=== PATIENT | female | born 1980 | race Asian ===

== ENCOUNTER 2021-08-19 15:57 | Emergency (ER) | payer MEDICAID, OTHER ==
[~2021-08-19] VITALS: Ht 152.4 cm; Wt 69.4 kg
--- OUTSIDE RECORDS SUMMARY | 2021-08-19 16:03 | XMS REPORT | Clinical Summary ---
Author Author [facility] Organization [facility] Address Unknown Phone Unavailable Care Team Providers Care Pl Sql Programmer Name Role Phone PCP Unavailable Allergies No Known Active Allergies Medications End Date Status Medication Sig Dispensed Refills Start Date Active propranoloL (INDERAL) 10 Take 10 mg by 0 MG tablet mouth 2 (two) times a day. Active Problems Comments Yes No additional problems on file Social History Date Tobacco Use Types Packs/Day Years Used Never Smoker Smokeless Tobacco: Never Used Comments Alcohol Use Standard Drinks/Week Never 0 (1 standard drink = 0.6 o z pure alcohol) Alcohol Habits Answer Date Recorded How often do you have a drink containing alcohol? Never 09/29/2020 How many drinks containing alcohol do you have on No t asked a typical day when you are drinking? How often do you have six or more drinks on one Not asked occasion? Comments Yes Sex Assigned at Date Recorded Not on file Last Filed Vital Signs Reading Time Taken Comments Vital Sign 148/78 09/29/2020 2:53 PM CDT Blood Pressure 68 09/29/2020 2:53 PM CDT Pulse 36.8 C (98.3 F) 09/29/2020 12:06 PM CDT Temperature 18 09/29/2020 2:53 PM CDT Respiratory Rate 98% 09/29/2020 2:53 PM CDT Oxygen Saturation - - Inhaled Oxygen Concentration 73.1 kg (161 lb 2.5 oz) 09/29/2020 12:06 PM CDT Weight 152.4 cm (5') 09/29/2020 12:06 PM CDT Height 31.47 09/29/2020 12:06 PM CDT Body Mass Index Plan of Treatment Health Maintenance Due Date Last Done Comments Td/Tdap# 1980 COVID-19 Vaccine (1) 1993 Cervical Cancer Screening 2002 via Pap Smear Influenza Vaccine (#1) 2021 Pneumococcal Vaccine: Aged Out No longer eligib le based on patient's age to Pediatrics (0 to 5 Years) complete this topic and At-Risk Patients (6 to 64 Years) Results Not on filefrom Last 3 Months Insurance Type Payer Benefit Subscriber ID Effective Phone Address Plan / Dates Group MEDICAID PENDING MEDICAID [id number] 2020- PENDING Present MEDICAID MANAGED CARE [facility] [id number] 0- ([employer] Present [place] Her,See Boris Personal/F Self 1980 [address] [place] [address] Advance Directives For more information, please contact: [phone] Patient Incident Response Engineer Explanation Type Date Recorded Health Care Directive
--- OUTSIDE RECORDS SUMMARY | 2021-08-19 16:03 | XMS REPORT | Clinical Summary ---
Author Author [facility] Health Organization [facility] Health Address Unknown Phone Unavailable Care Team Providers Care Ore Puncher Name Role Phone Network, Pcp Out Of PCP Unavailable Source Comments [facility] (Labor and Delivery) documents do not appear [facility] Allergies Comments Active Allergy Reactions Severity Noted Date Heart Races Hydroxyzine Hcl Other (See 10/25/2019 Comments) Medications * Please verify current medications with patient. End Date Status Medication Sig Dispensed Refills Start Date Active triamcinolone acetonide APPLY CREAM 45 g 1 0.1 % (KENALOG) cream EXTERNALLY TO 9 AREA TWICE DAILY FOR UP TO 7 DAYS NEEDED FOR RASH Active levothyroxine (SYNTHROID) Take 75 mcg 90 tablet 0 75 mcg tablet by mouth once 9 a day at 6 am Active labetaloL (TRANDATE) 100 TAKE 1 TABLET 30 tablet 0 mg tablet BID 0 Active amLODIPine-benazepril Take 1 30 capsule 0 10/03 (LOTREL) 5-20 mg capsule capsule by 0 mouth once a day Active Problems Problem Noted Date Rash 04/16/2018 HTN (hypertension) 06/08/2013 Hypothyroidism 06/08/2013 Overview: Formatting of this note might be differ ent from the original. S/p right thyroid removal for goiter. Insulin resistance syndrome 06/08/2013 Resolved Problems Problem Noted Date Resolved Date History of miscarriage, currently 06/08/2013 04/16/2018 Overview: Formatting of this note might be differ ent from the original. In depth negative work up through [facility]. See scanned records Immunizations Name Administration Dates Next Due FLU VACCINE, TRIVALENT, 09/29/2013 (AGE INDICATION BASED ON BRAND), 0.5 mL MDV Family History Medical History Relation Comments Hypertension Father Diabetes Mother Hypertension Mother Relation Status Comments Father Mother Social History Date Tobacco Use Types Packs/Day Years Used Never Smoker Smokeless Tobacco: Never Used Comments Alcohol Use Standard Drinks/Week Not Asked 0 (1 standard drink = 0.6 o z pure alcohol) Sex Assigned at Date Recorded Not on file Last Filed Vital Signs Reading Time Taken Comments Vital Sign 128/82 10/25/2019 1:37 PM [facility] left arm Blood Pressure 76 10/25/2019 1:37 PM MST Pulse 37.2 C (99 F) 10/25/2019 1:37 PM MST Temperature 18 10/25/2019 1:37 PM MST Respiratory Rate 95% 10/25/2019 1:37 PM [facility] room air Oxygen Saturation - - Inhaled Oxygen Concentration 70.1 kg (154 lb 9.6 oz) 10/25/2019 1:37 PM MST Weight 152.4 cm (5') 10/25/2019 1:37 PM MST Height 30.19 10/25/2019 1:37 PM MST Body Mass Index Plan of Treatment Health Maintenance Due Date Last Done Comments HPV/Cotest 1980 COVID-19 Vaccine (1) 1993 Influenza Vaccine (#1) 2021 09/29/2013 Cervical Cancer Screening 06/09/2024 Pap Smear 06/09/2024 06/09/2019, 08/31/2016 (Done Outside Per Patient/companion caregiver), 05/31/2014 (Done Outside Per Patient/companion caregiver) HPV Vaccine Aged Out No longer eligible based on patient's age to complete this topic Pneumococcal Vaccine: Aged Out No longer eligib le based on patient's age to Pediatrics (0 to 5 Years) complete this topic and At-Risk Patients (6 to 64 Years) Results Not on filefrom Last 3 Months Insurance Type Payer Benefit Subscriber ID Effective Phone Address Plan / Dates Group Not Determined [facility] [id number] 2018-P [phone] [address] [address] [place] [address] Advance Directives Patient Waiter/Waitress First Class Explanation Type Date Recorded Living Will CPR Directives Durable Medical POA Advanced Directives Care Teams Start Date End Date Ore Puncher Relationship Specialty 10/30/20 Network, Pcp Out Of PCP - General Other or Unknown Specialty
[2021-08-19] MEDS ORDERED: NS IV 1000 ML 1,000 ML IV STA (16:42)
[2021-08-19] MEDS ORDERED: DICYCLOMINE 10 MG/ML (BENTYL) 2 ML AMP IM STA (16:42)
[2021-08-19] MEDS ORDERED: ONDANSETRON 4 MG/2 ML (SDV) Z0FRAN IVP STA (16:42)
--- NOTE | 2021-08-19 16:44 | ED GI ---
General Chief Complaint: Abdominal/GI Problems Stated Complaint: POSS FOOD POISONING/ABD PAIN Source of Information: Patient History of Present Illness Date Seen by Provider: Aug 19, 2021 Time Seen by Provider: 16:24 Initial Comments 40 yo female presenting with complaints of abdominal pain and soreness since having [place] on Friday. The food was sitting out for a while before it was eaten. Several others from the meeting had the same food and had similar illness. She had abdominal pain throughout Friday night and then diarrhea all t he Friday. She has been taking only on Nexium which is slow the diarrhea. Today she has abdominal wall soreness and it feels like she has stool moving in her belly. At times gets too small and is very uncomfortable and painful. She denies any vomiting. She has no pain or burning with urination. When she was having the diarrhea was becoming watery and she did see some blood mixed in with it. She denies any fever, chills, abdominal trauma. She does have history of section but otherwise no abdominal surgeries. Severity/Quality: Severe, Cramping, Stabbing Location: Generalized Abdomen Associated Symptoms: No Chest Pain, No Diaphoresis, No Fever/Chills, No Fatigue, No Headache; Heartburn; No Nausea/Vomiting, No Rash, No Shortness of Air, No Swelling/Mass in Abdomen, No Syncope, No Weakness Allergies and Home Medications Allergies Coded Allergies: No Known Drug Allergies (Unverified , 08/19/21) Patient Home Medication List Home Medication List Reviewed: Yes Dicyclomine HCl (Dicyclomine HCl) 20 Mg Tablet, 20 MG PO QID PRN for abdominal pain/spasm Prescribed by: KATE GAGE on 08/19/21 173 Ondansetron (Ondansetron Odt) 4 Mg Tab.rapdis, 4 MG PO Q6H PRN for NAUSEA /VOMITING Prescribed by: KATE GAGE on 08/19/21 173 Review of Systems Review of Systems Constitutional: see HPI EENTM: No Symptoms Reported Respiratory: No Symptoms Reported Cardiovascular: No Symptoms Reported Gastrointestinal: See HPI Genitourinary: No Symptoms Reported Musculoskeletal: no symptoms reported Skin: No rash Psychiatric/Neurological: Denies Headache Past Hohnfbt-Klmntj-Ieamku Hx Past Medical History Surgeries: Yes Section Physical Exam Vital Signs Vital Signs - First Documented 08/19/21 16:02 Temp 36.2 Pulse 78 Resp 14 B/P (MAP) 104/81 (89) Pulse Ox 100 O2 Delivery Room Air Capillary Refill : Height/Weight/BMI Height: '" Weight: lbs. oz. kg; BMI Method: General Appearance: WD/WN, mild distress HEENT: pharynx normal Neck: non-tender, full range of motion, supple, normal inspection Respiratory: chest non-tender, lungs clear, normal breath sounds Cardiovascular: normal peripheral pulses, regular rate, rhythm Gastrointestinal: normal bowel sounds, soft, no pulsatile mass; No distended, No guarding, No rebound; tenderness (mild diffuse tenderness to palpation) Rectal: deferred Extremities: normal range of motion, non-tender, normal capillary refill Back: no CVA tenderness, no vertebral tenderness Neurologic/Psychiatric: alert, oriented x 3 Skin: normal color, warm/dry Images 1 - mild diffuse tenderness to palpation. No guarding/rebound Progress/Results/Core Measures Results/Orders Lab Results Laboratory Tests Test 08/19/21 16:50 08/19/21 17:05 Range/Units Urine Color YELLOW Urine Clarity CLOUDY Urine pH 6.0 5-9 Urine Specific [place] >=1.030 1.016-1.022 Urine Protein 3+ H NEGATIVE Urine Glucose (UA) NEGATIVE NEGATIVE Urine Ketones NEGATIVE NEGATIVE Urine Nitrite NEGATIVE NEGATIVE Urine Bilirubin NEGATIVE NEGATIVE Urine Urobilinogen 0.2 < = 1.0 MG/DL Urine Leukocyte Esterase NEGATIVE NEGATIVE Urine RBC (Auto) 3+ H NEGATIVE Urine RBC NONE /HPF Urine WBC >100 H /HPF Urine Squamous Epithelial Cells 25-50 H /HPF Urine Crystals NONE /LPF Urine Bacteria LARGE H /HPF Urine Casts NONE /LPF Urine Mucus LARGE H /LPF Urine Yeast FEW H /HPF Urine Culture Indicated NO White Blood Count 18.3 H 4.3-11.0 10^3/uL Red Blood Count 5.14 H 3.80-5.11 10^6/uL Hemoglobin 15.6 11.5-16.0 g/dL Hematocrit 46 35-52 % Mean Corpuscular Volume 89 80-99 fL Mean Corpuscular Hemoglobin 30 25-34 pg Mean Corpuscular Hemoglobin Concent 34 32-36 g/dL Red Cell Distribution Width 12.1 10.0-14.5 % Platelet Count 319 130-400 10^3/uL Mean Platelet Volume 8.4 L 9.0-12.2 fL Immature Granulocyte % (Auto) 1 % Neutrophils (%) (Auto) 89 H 42-75 % Lymphocytes (%) (Auto) 7 L 12-44 % Monocytes (%) (Auto) 3 0-12 % Eosinophils (%) (Auto) 0 0-10 % Basophils (%) (Auto) 0 0-10 % Neutrophils # (Auto) 16.3 H 1.8-7.8 X 10^3 Lymphocytes # (Auto) 1.3 1.0-4.0 X 10^3 Monocytes # (Auto) 0.5 0.0-1.0 X 10^3 Eosinophils # (Auto) 0.1 0.0-0.3 10^3/uL Basophils # (Auto) 0.1 0.0-0.1 10^3/uL Immature Granulocyte # (Auto) 0.1 0.0-0.1 10^3/uL Neutrophils % (Manual) 90 % Lymphocytes % (Manual) 8 % Monocytes % (Manual) 2 % Sodium Level 137 135-145 MMOL/L Potassium Level 4.5 3.6-5.0 MMOL/L Chloride Level 101 98-107 MMOL/L Carbon Dioxide Level 24 21-32 MMOL/L Anion Gap 12 5-14 MMOL/L Blood Urea Nitrogen 15 7-18 MG/DL Creatinine 0.73 0.60-1.30 MG/DL Estimat Glomerular Filtration Rate 89 BUN/Creatinine Ratio 21 Glucose Level 116 H 70-105 MG/DL Calcium Level 9.5 8.5-10.1 MG/DL Corrected Calcium 8.5-10.1 MG/DL Total Bilirubin 0.4 0.1-1.0 MG/DL Aspartate Amino Transf (AST/SGOT) 16 5-34 U/L Alanine Aminotransferase (ALT/SGPT) 9 0-55 U/L Alkaline Phosphatase 78 40-136 U/L Total Protein 9.1 H 6.4-8.2 GM/DL Albumin 4.7 H 3.2-4.5 GM/DL Lipase 28 8-78 U/L My Orders Orders - KATE GAGE MD Comprehensive Metabolic Panel (08/19/21 16:42) Lipase (08/19/21 16:42) Ua Culture If Indicated (08/19/21 16:42) Ed Iv/Invasive Line Start (08/19/21 16:42) Cbc With Automated Diff (08/19/21 16:42) Ct Abdomen/Pelvis W (08/19/21 16:42) Stool Culture (08/19/21 16:42) Fecal Wbc (08/19/21 16:42) C Difficile Ag + Toxin A/B. (08/19/21 16:42) Isolation Central Supply Req (08/19/21 16:42) Ns Iv 1000 Ml (Sodium Chloride 0.9%) (08/19/21 16:42) Dicyclomine Injection (Bentyl Injection) (08/19/21 16:42) Ondansetron Injection (Zofran Injectio (08/19/21 16:42) Iohexol Injection (Omnipaque 350 Mg/Ml 1 (08/19/21 16:45) Received Contrast (Hold Metformin- Contr (08/19/21 16:45) Sodium Chloride Flush (Catheter Flush Sy (08/19/21 16:45) Ns (Ivpb) (Sodium Chloride 0.9% Ivpb Bag (08/19/21 16:45) Manual Differential (08/19/21 17:05) Urine Bedside (08/19/21 17:27) Medications Given in ED Current Medications Medications Dose Ordered Sig/Andrew Route Start Time Stop Time Status Last Admin Dose Admin Iohexol 100 ml ONCE ONCE IV 08/19/21 16:45 08/19/21 16:51 DC 08/19/21 17:13 100 ML Sodium Chloride 10 ml NEEDED PRN IV 08/19/21 16:45 08/19/21 18:02 DC 08/19/21 17:13 10 ML Sodium Chloride 100 ml ONCE ONCE IV 08/19/21 16:45 08/19/21 16:51 DC 08/19/21 17:13 40 ML Vital Signs/I&O 08/19/21 08/19/21 16:02 18:00 Temp 36.2 Pulse 78 72 Resp 14 16 B/P (MAP) 104/81 (89) 112/69 Pulse Ox 100 97 O2 Delivery Room Air Room Air Progress Progress Note #1: Progress Note Check labs and urinalysis. Obtain CT scan of her abdomen pelvis with her complaint of severe pain and continued diarrhea with some blood in it. Obtain stool specimen for culture and study. Give IV fluids for hydration, Zofran for nausea, Toradol for pain, Bentyl for cramping and pain. Progress Note #2: Progress Note Lab does show elevated white blood cell count which may be related more to stress and pain rather than infection. Her urine is concentrated with an elevated specific gravity greater than 1.030. She did have some bacteria in the urine but also epithelial cells. She had chemistry without acute significant abnormality. Her CT scan showed enteritis with mural wall thickening of the intestine but no abscess or obstruction. On recheck of the patient she was reporting feeling better with treatment and has had no diarrhea while in the ED to be able to provide a specimen for testing. Will discharge on Zofran and Bentyl. Counseled on follow-up and return precautions. Advised to continue the liquid or bland diet for 24 to 48 hours. If symptoms worsen or not improving check back with the clinic or return. Diagnostic Imaging Diagonstic Imaging: CT Plain Films/CT/US/NM/MRI: abdomen, pelvis Comments NAME: HER,SEE V MED REC#: [id number] PT STATUS: REG ER : 1980 PHYSICIAN: KATE GAGE MD ADMIT DATE: 08/19/21/ER FS Draft Date of Exam:08/19/21 CT ABDOMEN/PELVIS W PROCEDURE: CT abdomen and pelvis with contrast. TECHNIQUE: Multiple contiguous axial images were obtained through the abdomen and pelvis after administration of intravenous contrast. Auto Exposure Controls were utilized during the CT exam to meet ALARA standards for radiation dose reduction. All CT scans use one or more of the following dose optimizing techniques: automated exposure control, MA and/or KvP adjustment based on patient size and exam type or iterative reconstruction. INDICATION: Abdominal pain and diarrhea. FINDINGS: There is low-density in the liver indicating steatosis. No focal hepatic abnormality or biliary ductal dilatation is identified. The gallbladder has a normal appearance. There is mild hiatal hernia. Fluid is distended with liquid. There is no evidence of pancreatic, adrenal gland or definite renal lesion. Several cysts measure up to 1 cm in size in the kidneys, bilaterally. There is no abdominal free fluid. There is mild diffuse mural thickening within small bowel loops. There is also mild peritoneal free fluid. No appendiceal inflammation is identified. No transition point is seen to indicate an obstruction. Prominent vessels are seen in the parametrial regions. Urinary bladder is decompressed which limits evaluation. IMPRESSION: Diffuse enteric mural thickening likely reflects enteritis with associated sympathetic peritoneal fluid. No definite transition point or obstruction is identified and there is no evidence of formed fluid collection to suggest an abscess. Dictated on workstation # [id number] Dict: 08/19/21 1719 Trans: 08/19/21 1726 [facility] [id number] Interpreted by: LOREE OWUSU MD Electronically signed by: Departure Impression Primary Impression: Food poisoning Additional Impression: Gastroenteritis Disposition: 01 HOME, SELF-CARE Condition: Stable Departure-Patient Inst. Decision time for Depature: 17:57 Referrals: NO,LOCAL PHYSICIAN (PCP) [place] Physician [facility] [place]ructions: Diarrhea, Adult ED, Food Poisoning ED Add. Discharge Instructions: Follow a clear liquid or full liquid diet for the next 24-48 hours to let the inflammation of your intestines heal. Consider taking a probiotic or at least eating yogurt with active cultures to help replace the good bacteria in your gut and help with the healing of the inflamed intestines Use the Bentyl (Dicyclomine) to help with abdominal pain/cramping/spasm. Use Zofran (Ondansetron) if needed for nausea and to help make sure you can stay hydrated. Check back with [facility] clinic if your symptoms are not improving by Friday. All discharge instructions reviewed with patient and/or family. Voiced understanding. Scripts Dicyclomine HCl (Dicyclomine HCl) 20 Mg Tablet 20 MG PO QID PRN for abdominal pain/spasm for 5 Days, #20 TAB 0 Refills Prov: KATE GAGE MD 08/19/21 Ondansetron (Ondansetron Odt) 4 Mg Tab.rapdis 4 MG PO Q6H PRN for NAUSEA/VOMITING for 3 Days, #12 TAB 0 Refills Prov: KATE GAGE MD 08/19/21 KATE GAGE MD Aug 19, 2021 16:44
[2021-08-19] MEDS ORDERED: IOHEXOL 350 MG/ML 100 ML (OMNIPAQUE 350) VIAL IV ONE (16:45)
[2021-08-19] MEDS ORDERED: CATHETER FLUSH 10 ML SYR IV PRN (16:45)
[2021-08-19] MEDS ORDERED: NS 100 ML (IVPB) BAG IV ONE (16:45)
[2021-08-19] MEDS ORDERED: HOLD METFORMIN - RECEIVED CONTRAST 20 ML VIAL IV SCH (16:45)
[2021-08-19 17:07] LABS: BACTERIA,URINE LARGE /HPF; BILIRUBIN,URINE NEGATIVE (NEGATIVE); CLARITY,URINE CLOUDY; COLOR,URINE YELLOW; GLUCOSE, URINE (UA) NEGATIVE (NEGATIVE); KETONES,URINE NEGATIVE (NEGATIVE); LEUKOCYTE ESTERASE ,URINE NEGATIVE (NEGATIVE); NITRITE,URINE NEGATIVE (NEGATIVE); PROTEIN,URINE 3+ (NEGATIVE); SQUAMOUS EPITHELIAL CELL,UR 25-50 /HPF; WBC,URINE >100 /HPF
[2021-08-19 17:08] LABS: YEAST,URINE FEW /HPF
[2021-08-19 17:12] LABS: BASOPHILS % (AUTO) 0 % (0-10); EOSINOPHILS % (AUTO) 0 % (0-10); HEMATOCRIT 46 % (35-52); HEMOGLOBIN 15.6 g/dL (11.5-16.0); LYMPHOCYTES % (AUTO) 7 % (12-44); MEAN CORPUSCULAR HEMOGLOBIN 30 pg (25-34); MEAN CORPUSCULAR HGB CONC 34 g/dL (32-36); MEAN CORPUSCULAR VOLUME 89 fL (80-99); MEAN PLATELET VOLUME 8.4 fL (9.0-12.2); MONOCYTES % (AUTO) 3 % (0-12); NEUTROPHILS % (AUTO) 89 % (42-75); PLATELET COUNT 319 10^3/uL (130-400); WHITE BLOOD COUNT 18.3 10^3/uL (4.3-11.0)
[2021-08-19 17:13] LABS: BASOPHILS # (AUTO) 0.1 10^3/uL (0.0-0.1); EOSINOPHILS # (AUTO) 0.1 10^3/uL (0.0-0.3); LYMPHOCYTES # (AUTO) 1.3 X 10^3 (1.0-4.0); MONOCYTES # (AUTO) 0.5 X 10^3 (0.0-1.0); NEUTROPHILS # (AUTO) 16.3 X 10^3 (1.8-7.8)
[2021-08-19 17:22] LABS: LYMPHOCYTES % (MANUAL) 8 %; MONOCYTES % (MANUAL) 2 %; NEUTROPHILS % (MANUAL) 90 %
[2021-08-19 17:27] LABS: ALANINE AMINOTRANSFERASE 9 U/L (0-55); ALBUMIN 4.7 GM/DL (3.2-4.5); ALKALINE PHOSPHATASE 78 U/L (40-136); BILIRUBIN,TOTAL 0.4 MG/DL (0.1-1.0); BUN/CREATININE RATIO 21; CALCIUM 9.5 MG/DL (8.5-10.1); CARBON DIOXIDE 24 MMOL/L (21-32); CHLORIDE 101 MMOL/L (98-107); CREATININE SERUM 0.73 MG/DL (0.60-1.30); GFR ESTIMATED 89; GLUCOSE 116 MG/DL (70-105); LIPASE 28 U/L (8-78); POTASSIUM 4.5 MMOL/L (3.6-5.0); SODIUM 137 MMOL/L (135-145); TOTAL PROTEIN 9.1 GM/DL (6.4-8.2)
--- NOTE | 2021-08-19 17:27 | Diagnostic Imaging Report ---
PROCEDURE: CT abdomen and pelvis with contrast. TECHNIQUE: Multiple contiguous axial images were obtained through the abdomen and pelvis after administration of intravenous contrast. Auto Exposure Controls were utilized during the CT exam to meet ALARA standards for radiation dose reduction. All CT scans use one or more of the following dose optimizing techniques: automated exposure control, MA and/or KvP adjustment based on patient size and exam type or iterative reconstruction. INDICATION: Abdominal pain and diarrhea. FINDINGS: There is low-density in the liver indicating steatosis. No focal hepatic abnormality or biliary ductal dilatation is identified. The gallbladder has a normal appearance. There is mild hiatal hernia. Fluid is distended with liquid. There is no evidence of pancreatic, adrenal gland or definite renal lesion. Several cysts measure up to 1 cm in size in the kidneys, bilaterally. There is no abdominal free fluid. There is mild diffuse mural thickening within small bowel loops. There is also mild peritoneal free fluid. No appendiceal inflammation is identified. No transition point is seen to indicate an obstruction. Prominent vessels are seen in the parametrial regions. Urinary bladder is decompressed which limits evaluation. IMPRESSION: Diffuse enteric mural thickening likely reflects enteritis with associated sympathetic peritoneal fluid. No definite transition point or obstruction is identified and there is no evidence of formed fluid collection to suggest an abscess. Dictated by: Dictated on workstation # [id number]
[2021-08-19] MEDS ORDERED: ONDA4TAB11 PO (17:37)
[2021-08-19] MEDS ORDERED: DICY20TA10 PO (17:37)
[2021-08-19 18:00] VITALS: BP 112/69
== END 2021-08-19 18:02 | disposition home or self-care (01) ==
LOC: ER FS 16:01
DX: A05.9 Bacterial foodborne intoxication, unspecified (principal); K52.9 Noninfective gastroenteritis and colitis, unspecified; D72.829 Elevated white blood cell count, unspecified
CPT/HCPCS: 36415; 74177; 80053; 81000; 83690; 84703; 85007; 85027; 87088

== ENCOUNTER 2021-10-21 11:22 | Emergency (ER) | payer MEDICAID ==
[~2021-10-21] VITALS: Ht 152 cm; Wt 150.0 kg
[~2021-10-21 11:22] MED LIST: DICY20TA10 PO; ONDA4TAB11 PO
--- NOTE | 2021-10-21 11:31 | ED Lower Extremity ---
General Stated Complaint: LT KNEE INJ Source: patient Exam Limitations: no limitations History of Present Illness Date Seen by Provider: Oct 21, 2021 Time Seen by Provider: 11:24 Initial Comments 41yoF with PMH of hypertension coming in due to L knee pain. She was feeding the pigs last night when she slipped on some mud, twisted her left knee, felt a pop, fell forward landing on her knee. Did hit her head on something but did not pass out and remembers all events. No vomiting since. Does not take blood thinners. Now it does not feel right to walk and somewhat like it keeps "twisting out". Has mild to moderate constant throbbing pain in her knee which is worse with walking. Has not taken any meds for it yet. Allergies and Home Medications Allergies Coded Allergies: No Known Drug Allergies (Unverified , 08/19/21) Patient Home Medication List Home Medication List Reviewed: Yes Dicyclomine HCl (Dicyclomine HCl) 20 Mg Tablet, 20 MG PO QID PRN for abdominal pain/spasm Prescribed by: KATE GAGE on 08/19/21 173 Ondansetron (Ondansetron Odt) 4 Mg Tab.rapdis, 4 MG PO Q6H PRN for NAUSEA/VOMITING Prescribed by: KATE GAGE on 08/19/21 173 Review of Systems Constitutional: No chills, No fever EENTM: no symptoms reported Respiratory: no symptoms reported Cardiovascular: no symptoms reported Gastrointestinal: no symptoms reported Genitourinary: no symptoms reported Musculoskeletal: joint pain Skin: no symptoms reported Psychiatric/Neurological: No Symptoms Reported All Other Systems Reviewed Negative Unless Noted: Yes Past Dmzipgl-Exseuj-Arixqt Hx Patient Social History Substance use?: No Immunizations Up To Date First/Initial COVID19 Vaccinat: Jan 2021 Second COVID19 Vaccination Melvin: January 2021 Past Medical History Surgeries: Yes Section Physical Exam Vital Signs Vital Signs - First Documented 10/21/21 11:37 Temp 36.5 Pulse 100 Resp 16 B/P (MAP) 137/93 (108) Pulse Ox 96 O2 Delivery Room Air Capillary Refill : Height, Weight, BMI Height: '" Weight: lbs. oz. kg; 29.00 BMI Method: General Appearance: WD/WN, no apparent distress HEENT: PERRL/EOMI, normal ENT inspection, pharynx normal Neck: non-tender, full range of motion, supple, normal inspection Cardiovascular: regular rate, rhythm, no edema, no murmur Respiratory: chest non-tender, lungs clear, normal breath sounds, no respiratory distress, no accessory muscle use Gastrointestinal: normal bowel sounds, non tender, soft; No distended, No guarding, No rebound Back: normal inspection, no CVA tenderness, no vertebral tenderness Hips: bilateral hip non-tender, bilateral hip normal inspection, bilateral hip normal range of motion, bilateral hip no evidence of injury Legs: bilateral leg non-tender, bilateral leg normal inspection, bilateral leg normal range of motion, bilateral leg no evidence of injury Knees: right knee non-tender, right knee normal inspection, right knee normal range of motion, right knee no evidence of injury; left knee pain, left knee swelling, left knee other (Left knee with effusion, tender over the LCL with the joint opening with varus stress, positive Cecile) Ankles: bilateral ankle non-tender, bilateral ankle normal inspection, bilateral ankle normal range of motion, bilateral ankle no evidence of injury Feet: bilateral foot non-tender, bilateral foot normal inspection, bilateral foot normal range of motion, bilateral foot no evidence of injury Neurologic/Tendon: normal sensation, normal motor functions Neurologic/Psychiatric: no motor/sensory deficits, alert, normal mood/affect Skin: normal color, warm/dry Lymphatic: no adenopathy Progress/Results/Core Measures Results/Orders My Orders Orders - WENDY LUONG MD Knee 3 View Left (10/21/21 11:39) Ibuprofen Tablet (Motrin Tablet) (10/21/21 11:45) Medications Given in ED Current Medications Medications Dose Ordered Sig/Andrew Route Start Time Stop Time Status Last Admin Dose Admin Ibuprofen 600 mg ONCE ONCE PO 10/21/21 11:45 10/21/21 11:46 DC 10/21/21 11:49 600 MG Vital Signs/I&O 10/21/21 11:37 Temp 36.5 Pulse 100 Resp 16 B/P (MAP) 137/93 (108) Pulse Ox 96 O2 Delivery Room Air Progress Progress Note : Progress Note 41-year-old female with above history coming in due to left knee pain after twisting it and falling yesterday. ABCs were intact and vitals were stable on presentation. Her knee does have an effusion and she is tender over her LCL with some gapping with varus stress as well as she has a positive Cecile. Concern for an ACL and likely LCL tear. X-ray ordered to assess for fracture as well. She was given ibuprofen for pain. X-ray of the knee ordered and interpreted by me showing no obvious fracture or dislocation, but does have a large joint effusion. She was given crutches for comfort and an Blake bandage to wrap it. We will have her follow-up with orthopedics closely as an outpatient. I believe she is stable for discharge. She was sent home with strict return precautions Diagnostic Imaging Diagonstic Imaging: Xray Plain Films/CT/US/NM/MRI: knee Comments [facility]. [place], [place] NAME: HER,SEE V MED REC#: [id number] PT STATUS: REG ER : 1980 PHYSICIAN: WENDY LUONG MD ADMIT DATE: 10/21/21/ER FS Draft Date of Exam:10/21/21 KNEE 3 VIEW LEFT INDICATION: Left knee pain. Fall. No comparison available FINDINGS: Alignment of the knee is appropriate. There is no cortical disruption to suggest an acute fracture. There is no suspicious marrow replacing lesion. There is a moderate knee joint effusion. Soft tissues are otherwise unremarkable. IMPRESSION: 1. Moderate left knee joint effusion. Alignment is normal. There is no fracture. Dictated on workstation # [id number] Dict: 10/21/21 1154 Trans: 10/21/21 1158 [facility] [id number] Interpreted by: JOSE MENDOSA MD Electronically signed by: Departure Impression Primary Impression: ACL tear Qualified Codes: S83.512A - Sprain of anterior cruciate ligament of left knee, initial encounter Disposition: 01 HOME, SELF-CARE Condition: Stable Departure-Patient Inst. Referrals: KENIA SCHUMACHER (PCP) Primary Care Physician [facility] (Family) Primary Care Physician JERI ANGEL MD Patient Instructions: Anterior Cruciate Ligament Tear ED Add. Discharge Instructions: I am concerned you tore your ACL as well as injured your LCL. Take ibuprofen 600 mg every 6 hours as needed for pain, but this can also help with the inflammation and swelling. You and also ice your knee. You can wear a general knee brace that you get at the store to try to help make it feel stable. You need to follow-up with an orthopedic surgeon and get an MRI to see the extent of the damage in your knee. I think you will need surgery here within the next couple weeks. They often like the knee swelling to go down before they do the surgery. Work/School Note: Work Release Form Date Seen in the Emergency Department: Oct 21, 2021 Return to Work: Oct 23, 2021 Restrictions: No Restrictions WENDY LUONG MD Oct 21, 2021 11:31
[2021-10-21 11:37] VITALS: BP 137/93
[2021-10-21] MEDS ORDERED: IBUPROFEN 600 MG (MOTRIN) TAB PO ONE (11:45)
--- NOTE | 2021-10-21 11:58 | Diagnostic Imaging Report ---
INDICATION: Left knee pain. Fall. No comparison available FINDINGS: Alignment of the knee is appropriate. There is no cortical disruption to suggest an acute fracture. There is no suspicious marrow replacing lesion. There is a moderate knee joint effusion. Soft tissues are otherwise unremarkable. IMPRESSION: 1. Moderate left knee joint effusion. Alignment is normal. There is no fracture. Dictated by: Dictated on workstation # [id number]
--- OUTSIDE RECORDS SUMMARY | 2021-10-22 11:52 | XMS REPORT | Clinical Summary ---
Author Author [facility] Organization [facility] Address Unknown Phone Unavailable Care Team Providers Care Rack Puncher Name Role Phone Network, Pcp Out Of PCP Unavailable Source Comments [facility] Comments Active Allergy Reactions Severity Noted [...] Comments Vital Sign 128/82 10/25/2019 1:37 PM [facility] left arm Blood Pressure 76 10/25/2019 1:37 PM [facility] Pulse 37.2 C (99 F) 10/25/2019 1:37 PM MST Temperature 18 10/25/2019 1:37 PM MST Respiratory Rate 95% 10/25/2019 1:37 PM [facility] room air Oxygen Saturation - - Inhaled Oxygen Concentration 70.1 kg (154 lb 9.6 oz) 10/25/2019 1:37 PM [facility] Weight 152.4 cm (5') 10/25/2019 1:37 PM MST Height 30.19 10/25/2019 1:37 PM MST Body Mass Index Plan of Treatment Health Maintenance Due Date Last Done Comments HPV/Cotest 1980 COVID-19 Vaccine (1) 1993 Influenza Vaccine (#1) 2021 09/29/2013 Diabetes Screening 06/09/2022 06/09/2019, 06/09/2019, 04/16/2018, Additional history exists Cervical Cancer Screening 06/09/2024 Lipid Panel 06/09/2024 06/09/2019, 04/16/2018, 02/23/2015, Additional history exists Pap Smear 06/09/2024 06/09/2019, 08/31/2016 (Done Outside Per Patient/retail management trainee), 05/31/2014 (Done Outside Per Patient/retail management trainee) HPV Vaccine Aged Out No longer eligible based on patient's age to complete this topic Hepatitis A Vaccine Aged Out No longer eligible based on patient's age to complete this topic Hepatitis B Vaccine Aged Out No longer eligible based on patient's age to complete this topic Hib Vaccine Aged Out No longer eligible based on patient's age to complete this topic IPV Vaccine Aged Out No longer eligible based on patient's age to complete this topic Meningococcal Vaccine Aged Out No longer eligib le based on patient's age to (MCV4) complete this topic Pneumococcal Vaccine: Aged Out No longer eligib le based on patient's age to Pediatrics (0 to 5 Years) complete this topic and At-Risk Patients (6 to 64 Years) Rotavirus Vaccine Aged Out No longer eligible based on patient's age to complete this topic Results Not on filefrom Last 3 Months Insurance Type Payer Benefit Subscriber ID Effective Phone Address Plan / Dates Group Not Determined [facility] [id number] 2018-P [phone] [address] [id number] [place] [address] Advance Directives 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
== END 2021-10-21 12:07 | disposition home or self-care (01) ==
LOC: EDUNIT# 11:22 → ER FS 11:24
DX: S83.512A Sprain of anterior cruciate ligament of left knee, initial encounter (principal); X50.1XXA Overexertion from prolonged static or awkward postures, initial encounter
CPT/HCPCS: 73562

== ENCOUNTER → 2021-11-30 | Outpatient (CLI) | payer MEDICAID ==
[~2021-11-30] MED LIST changes: +DICY20TA PO; -DICY20TA10 PO
--- NOTE | 2021-11-30 09:30 | Diagnostic Imaging Report ---
PROCEDURE: CT head without contrast. TECHNIQUE: Multiple contiguous axial images were obtained through the brain without the use of intravenous contrast. Auto Exposure Controls were utilized during the CT exam to meet ALARA standards for radiation dose reduction. INDICATION: Supraauricular painful lump on the right. COMPARISON: I have no priors. FINDINGS: There is no calvarial fracture deformity. The mastoid air cells are clear and well-aerated. The middle ear cavities appeared unremarkable. Central skull base appeared intact. The paranasal sinuses and orbits intact. There is no calvarial fracture deformity, no pneumocephalus. There is no intracerebral hemorrhage. No hydrocephalus, edema, mass or mass effect. No evidence for elevated intracranial pressures. No sulcal effacement. The prakash-white matter differentiations are maintained. There is no identifiable mass, in particular, the periauricular space on the right showed no asymmetry to the left. No mass, fluid collection or focal hematoma can be identified.. IMPRESSION: Unremarkable CT head. Dictated by: Dictated on workstation # [id number]
== END ==
LOC: RAD FS 09:00
PROVIDERS: ATTEND Nurse Practitioner Family
DX: R22.0 Localized swelling, mass and lump, head (principal); H53.9 Unspecified visual disturbance
CPT/HCPCS: 70450